=== PATIENT | female | born 1955 | race Caucasian/White ===

== ENCOUNTER → 2019-08-06 | Outpatient (REF) | payer BC | LOC: M SFHCWAGY 10:54 | PROVIDERS: ATTEND Family Medicine | DX: Z12.4 Encounter for screening for malignant neoplasm of cervix (principal); N95.2 Postmenopausal atrophic vaginitis ==

== ENCOUNTER → 2021-08-31 | Outpatient (REF) | payer BC | LOC: M SFHCWAGY 17:53 | PROVIDERS: ATTEND Obstetrics & Gynecology | DX: R87.625 Unsatisfactory cytologic smear of vagina (principal) | CPT/HCPCS: 87624; G0123 ==

== ENCOUNTER → 2021-08-31 | Outpatient (CLI) | payer BC | LOC: M WHC 12:58 | PROVIDERS: ATTEND Obstetrics & Gynecology | DX: Z12.31 Encounter for screening mammogram for malignant neoplasm of breast (principal); Z78.0 Asymptomatic menopausal state; Z80.3 Family history of malignant neoplasm of breast ==

== ENCOUNTER → 2021-08-31 | Outpatient (CLI) | payer BC | LOC: M WHC 13:18 | PROVIDERS: ATTEND Obstetrics & Gynecology | DX: Z53.20 Procedure and treatment not carried out because of patient's decision for unspecified reasons (principal) ==

== ENCOUNTER → 2023-02-24 | Outpatient (CLI) | payer MEDICARE | LOC: M WHC 13:57 | PROVIDERS: ATTEND Obstetrics & Gynecology | DX: Z12.31 Encounter for screening mammogram for malignant neoplasm of breast (principal); Z80.3 Family history of malignant neoplasm of breast; Z80.0 Family history of malignant neoplasm of digestive organs ==

== ENCOUNTER → 2023-02-24 | Outpatient (REF) | payer BC | LOC: M PLALAB 15:02 | PROVIDERS: ATTEND Obstetrics & Gynecology | DX: Z12.4 Encounter for screening for malignant neoplasm of cervix (principal); N95.2 Postmenopausal atrophic vaginitis | CPT/HCPCS: 87624; G0123 ==

== ENCOUNTER → 2024-08-24 | Outpatient (REF) | payer MEDICARE | LOC: M SFHCDERM 17:28 | PROVIDERS: ATTEND Nurse Practitioner Family | DX: C44.729 Squamous cell carcinoma of skin of left lower limb, including hip (principal) ==

== ENCOUNTER → 2024-09-08 | Outpatient (REF) | payer MEDICARE | LOC: M LAB REF 17:28 | PROVIDERS: ATTEND Surgery | DX: C44.729 Squamous cell carcinoma of skin of left lower limb, including hip (principal) ==